=== PATIENT | male | born 1965 | race Caucasian/White ===

== ENCOUNTER 2022-03-12 06:06 | Emergency (ER) | payer MEDICAID ==
[~2022-03-12] VITALS: Ht 182.9 cm; Wt 53.0 kg
[2022-03-12] VITALS (18 sets, daily range): BP systolic 89–133; BP diastolic 53–86
[2022-03-12 06:28] LABS: HEMATOCRIT 42.4 % (39.0-50.0); HEMOGLOBIN 14.2 g/dl (14.0-18.0); IMMATURE GRANULOCYTES 1.1 % (0.0-5.0); MEAN CELL VOLUME 99.3 fL CALC (80.0-100.0); MEAN CORPUSCULAR HGB 33.3 pG CALC (26.0-32.0); MEAN CORPUSCULAR HGB CONC 33.5 g/dL CAL (32.0-36.0); NEUT# 9.84 thou/uL (1.82-7.42); RED BLOOD COUNT 4.27 mill/uL (4.70-6.10); RED CELL DISTRI WIDTH 15.1 % (11.5-15.5)
[2022-03-12] MEDS ORDERED: COREG3.125 MG PO (06:36)
[2022-03-12] MEDS ORDERED: LISINOPRIL2.5 MG PO (06:36)
[2022-03-12] MEDS ORDERED: SINEMET 10/1001 TA1 PO (06:37)
[2022-03-12 06:46] LABS: ALBUMIN 2.9 g/dL (3.2-5.0); ALKALINE PHOSPHATASE 226 u/l (38-126); AMYLASE 146 u/l (30-110); ANION GAP 12 (6-22 (CALC)); BILIRUBIN, TOTAL 13.9 mg/dL (0.0-1.4); BUN 10 mg/dL (9-20); BUN/CREATININE RATIO 12 (12-20 (CALC)); CARBON DIOXIDE 28 mmol/l (22-30); CHLORIDE 88 mmol/l (95-108); CREATININE 0.9 mg/dL (0.7-1.3); ETHYL ALCOHOL 0 mg/dl (0-30); GFR FOR AFR.AMER. > 60 ML/MIN (>=60 (CALC)); GFR OTHER RACES > 60 ML/MIN (>=60 (CALC)); LIPASE 736 u/l (23-300); POTASSIUM 3.6 mmol/l (3.5-5.1); SGOT/AST 141 u/l (17-59); SODIUM 125 mmol/l (137-146); TOTAL PROTEIN 6.8 g/dL (6.3-8.2)
[2022-03-12 06:47] LABS: ACT PARTIAL THROMBO TIME 31.1 SECONDS (20.0-32.5); INTERNATIONAL NORMALIZED RATIO 1.9 RATIO (0.7-1.3); PROTHROMBIN TIME 18.7 SECONDS (9.0-12.5)
[2022-03-12 10:07] LABS: URINE BLOOD DIPSTICK NEGATIVE (NEGATIVE); URINE COLOR YELLOW; URINE GLUCOSE - DIPSTICK NEGATIVE (NEGATIVE); URINE KETONE NEGATIVE (NEGATIVE); URINE LEUK ESTERASE NEGATIVE (NEGATIVE); URINE PROTEIN - DIPSTICK NEGATIVE (NEG-TRACE)
[2022-03-12 10:08] LABS: URINE BILIRUBIN - DIPSTICK MODERATE (NEGATIVE)
[2022-03-12 10:09] LABS: URINE NITRITE - DIPSTICK NEGATIVE (Negative)
== END 2022-03-12 10:36 | disposition short-term general hospital (02) ==
LOC: EDBD 06:06 → ED 06:06
PROVIDERS: Family Medicine
DX: K74.60 Unspecified cirrhosis of liver (principal); R18.8 Other ascites; E80.6 Other disorders of bilirubin metabolism; I10 Essential (primary) hypertension; F17.290 Nicotine dependence, other tobacco product, uncomplicated; Z72.89 Other problems related to lifestyle; Z20.822 Contact with and (suspected) exposure to COVID-19
CPT/HCPCS: J2060; Q9967

== ENCOUNTER 2022-03-25 08:18 | Emergency (ER) | payer MEDICAID ==
[~2022-03-25] VITALS: Ht 182.9 cm; Wt 90.0 kg
[~2022-03-25 08:18] MED LIST: COREG3.125 MG PO; LISINOPRIL2.5 MG PO; SINEMET 10/1001 TA1 PO
[2022-03-25 09:39] LABS: HEMOGLOBIN 14.9 g/dl (14.0-18.0); IMMATURE GRANULOCYTES 1.5 % (0.0-5.0); MEAN CELL VOLUME 94.6 fL CALC (80.0-100.0); MEAN CORPUSCULAR HGB 33.6 pG CALC (26.0-32.0); MEAN CORPUSCULAR HGB CONC 35.5 g/dL CAL (32.0-36.0); NEUT# 18.85 thou/uL (1.82-7.42); RED BLOOD COUNT 4.44 mill/uL (4.70-6.10); RED CELL DISTRI WIDTH 15.5 % (11.5-15.5)
[2022-03-25 09:43] LABS: INTERNATIONAL NORMALIZED RATIO 1.5 RATIO (0.7-1.3)
[2022-03-25 10:01] LABS: ALBUMIN 2.5 g/dL (3.2-5.0); ALKALINE PHOSPHATASE 187 u/l (38-126); BUN 18 mg/dL (9-20); BUN/CREATININE RATIO 35 (12-20 (CALC)); CARBON DIOXIDE 23 mmol/l (22-30); CHLORIDE 92 mmol/l (95-108); CREATININE 0.5 mg/dL (0.7-1.3); GFR FOR AFR.AMER. > 60 ML/MIN (>=60 (CALC)); GFR OTHER RACES > 60 ML/MIN (>=60 (CALC)); LIPASE 735 u/l (23-300); SGOT/AST 182 u/l (17-59); SODIUM 122 mmol/l (137-146); TOTAL PROTEIN 5.6 g/dL (6.3-8.2)
[2022-03-25 10:09] LABS: ANION GAP 12 (6-22 (CALC)); BILIRUBIN, TOTAL 8.1 mg/dL (0.0-1.4); POTASSIUM 4.8 mmol/l (3.5-5.1)
[2022-03-25 20:36] VITALS: BP 137/87
== END 2022-03-25 20:38 | disposition short-term general hospital (02) ==
LOC: ED 08:18
PROVIDERS: Family Medicine
DX: A41.9 Sepsis, unspecified organism (principal); K74.60 Unspecified cirrhosis of liver; R18.8 Other ascites; C22.0 Liver cell carcinoma; I10 Essential (primary) hypertension; E11.9 Type 2 diabetes mellitus without complications; E78.5 Hyperlipidemia, unspecified; G20 Parkinson's disease; F17.200 Nicotine dependence, unspecified, uncomplicated; Z20.822 Contact with and (suspected) exposure to COVID-19
CPT/HCPCS: J2060; Q9967

== ENCOUNTER 2022-04-14 09:33 | Emergency (ER) | payer MEDICAID ==
[~2022-04-14] VITALS: Ht 182.9 cm; Wt 83.9 kg
[2022-04-14] VITALS (10 sets, daily range): BP systolic 90–110; BP diastolic 61–73
[2022-04-14 10:10] LABS: ALBUMIN 2.1 g/dL (3.2-5.0); ALKALINE PHOSPHATASE 118 u/l (38-126); BILIRUBIN, TOTAL 5.9 mg/dL (0.0-1.4); BUN 15 mg/dL (9-20); BUN/CREATININE RATIO 27 (12-20 (CALC)); CARBON DIOXIDE 25 mmol/l (22-30); CHLORIDE 95 mmol/l (95-108); CREATININE 0.5 mg/dL (0.7-1.3); GFR FOR AFR.AMER. > 60 ML/MIN (>=60 (CALC)); GFR OTHER RACES > 60 ML/MIN (>=60 (CALC)); SGOT/AST 167 u/l (17-59); SODIUM 123 mmol/l (137-146); TOTAL PROTEIN 4.8 g/dL (6.3-8.2)
[2022-04-14 10:11] LABS: ANION GAP 7 (6-22 (CALC)); POTASSIUM 3.8 mmol/l (3.5-5.1)
[2022-04-14 11:02] LABS: HEMATOCRIT 40.6 % (39.0-50.0); IMMATURE GRANULOCYTES 3.1 % (0.0-5.0); MEAN CELL VOLUME 98.8 fL CALC (80.0-100.0); MEAN CORPUSCULAR HGB 34.1 pG CALC (26.0-32.0); MEAN CORPUSCULAR HGB CONC 34.5 g/dL CAL (32.0-36.0); NEUT# 6.48 thou/uL (1.82-7.42); RED BLOOD COUNT 4.11 mill/uL (4.70-6.10); RED CELL DISTRI WIDTH 16.6 % (11.5-15.5)
== END 2022-04-14 16:19 | disposition short-term general hospital (02) ==
LOC: ED 09:33
PROVIDERS: Family Medicine
DX: K70.31 Alcoholic cirrhosis of liver with ascites (principal); F10.10 Alcohol abuse, uncomplicated; I10 Essential (primary) hypertension
CPT/HCPCS: Q9967

== ENCOUNTER 2022-05-02 10:31 | Emergency (ER) | payer MEDICAID ==
[2022-05-02] VITALS (19 sets, daily range): BP systolic 75–110; BP diastolic 52–72
[~2022-05-02] VITALS: Ht 182.9 cm; Wt 68.0 kg
[2022-05-02 11:15] LABS: HEMATOCRIT 40.8 % (39.0-50.0); HEMOGLOBIN 14.7 g/dl (14.0-18.0); IMMATURE GRANULOCYTES 2.8 % (0.0-5.0); MEAN CORPUSCULAR HGB 34.6 pG CALC (26.0-32.0); NEUT# 16.6 thou/uL (1.82-7.42); RED BLOOD COUNT 4.25 mill/uL (4.70-6.10); RED CELL DISTRI WIDTH 16.1 % (11.5-15.5)
[2022-05-02 11:26] LABS: INTERNATIONAL NORMALIZED RATIO 1.6 RATIO (0.7-1.3); PROTHROMBIN TIME 15.6 SECONDS (9.0-12.5)
[2022-05-02 11:28] LABS: ALBUMIN 2.4 g/dL (3.2-5.0); ALKALINE PHOSPHATASE 196 u/l (38-126); BILIRUBIN, TOTAL 8.9 mg/dL (0.0-1.4); BUN 12 mg/dL (9-20); BUN/CREATININE RATIO 20 (12-20 (CALC)); CHLORIDE 81 mmol/l (95-108); CREATININE 0.6 mg/dL (0.7-1.3); GFR FOR AFR.AMER. > 60 ML/MIN (>=60 (CALC)); GFR OTHER RACES > 60 ML/MIN (>=60 (CALC)); POTASSIUM 4.2 mmol/l (3.5-5.1); SGOT/AST 65 u/l (17-59); TOTAL PROTEIN 5.1 g/dL (6.3-8.2)
[2022-05-02 11:32] LABS: ANION GAP 9 (6-22 (CALC)); CARBON DIOXIDE 28 mmol/l (22-30); SODIUM 114 mmol/l (137-146)
[2022-05-02 12:24] LABS: URINE BLOOD DIPSTICK LARGE (NEGATIVE); URINE GLUCOSE - DIPSTICK NEGATIVE (NEGATIVE); URINE KETONE TRACE mg/dL (NEGATIVE); URINE LEUK ESTERASE NEGATIVE (NEGATIVE); URINE PROTEIN - DIPSTICK 100 mg/dL (NEG-TRACE); URINE SPECIFIC GRAVITY 1.025
[2022-05-02 12:25] LABS: URINE BILIRUBIN - DIPSTICK MODERATE (NEGATIVE); URINE COLOR RED; URINE NITRITE - DIPSTICK NEGATIVE (Negative)
[2022-05-02 12:26] LABS: URINE RBC TNTC RBC/hpf (0-5)
[2022-05-02] MEDS ORDERED: [UNRECOGNIZED DRUG - OTHER] PO (14:58)
[2022-05-02] MEDS ORDERED: ALPRAZOLAM0.25 MG PO (15:00)
[2022-05-02] MEDS ORDERED: LASIX40 MG PO (15:01)
[2022-05-02] MEDS ORDERED: PROTONIX40 M2 PO (15:02)
[2022-05-02] MEDS ORDERED: LACTULOSE10 GM/15 M (15:02)
[2022-05-02] MEDS ORDERED: TIZANIDINE2 MG PO (15:04)
[2022-05-02] MEDS ORDERED: TRAMADOL HYDROC50 M1 PO (15:06)
[2022-05-02] MEDS ORDERED: TRAZODONE50 MG PO (15:07)
[2022-05-02] MEDS ORDERED: ALDACTONE100 MG PO (15:08)
[2022-05-02] MEDS ORDERED: LEVEMIR100 UNIT (15:11)
[2022-05-02] MEDS ORDERED: HUMULIN 70/30 SC (15:12)
== END 2022-05-02 18:16 | disposition short-term general hospital (02) ==
LOC: ED 10:31
PROVIDERS: Family Medicine
DX: N30.81 Other cystitis with hematuria (principal); E87.1 Hypo-osmolality and hyponatremia; I95.9 Hypotension, unspecified; K70.30 Alcoholic cirrhosis of liver without ascites; F10.10 Alcohol abuse, uncomplicated; I10 Essential (primary) hypertension; E11.9 Type 2 diabetes mellitus without complications; Z85.05 Personal history of malignant neoplasm of liver
CPT/HCPCS: J0692